=== PATIENT | female | born 1995 | race Caucasian/White ===

== ENCOUNTER 2016-10-12 23:26 | Emergency (ER) | payer MEDICAID | END 2016-10-13 02:11 | disposition left against medical advice (07) | LOC: ER 23:26 | DX: Z53.21 Procedure and treatment not carried out due to patient leaving prior to being seen by health care provider (principal) | CPT/HCPCS: 36415; 80053; 81001; 83690; 84703; 85025; 87088 ==

== ENCOUNTER 2016-10-16 00:11 | Emergency (ER) | payer MEDICAID ==
[2016-10-16] MEDS ORDERED: CYCLOBENZAPRINE 10 MG TAB ONE (02:51)
[2016-10-16] MEDS ORDERED: KETOROLAC 60 MG/2 ML VIAL IM ONE (02:51)
== END 2016-10-16 03:44 | disposition home or self-care (01) ==
LOC: ER 00:11
DX: R07.1 Chest pain on breathing (principal); R09.1 Pleurisy
CPT/HCPCS: 71020; 96372

== ENCOUNTER 2016-10-20 21:49 | Emergency (ER) | payer MEDICAID ==
[2016-10-20] MEDS ORDERED: DIPHENHYDRAMINE 50 MG/ML VIAL ONE (23:38)
[2016-10-20] MEDS ORDERED: METOCLOPRAMIDE 10 MG/2 ML VIAL ONE (23:38)
[2016-10-20] MEDS ORDERED: KETOROLAC 30 MG/ML VIAL ONE (23:39)
[2016-10-20] MEDS ORDERED: SODIUM CHLORIDE 0.9% 1,000 ML ONE (23:39)
== END 2016-10-21 00:42 | disposition left against medical advice (07) ==
LOC: ER 21:49
DX: G43.909 Migraine, unspecified, not intractable, without status migrainosus (principal); G89.18 Other acute postprocedural pain
CPT/HCPCS: 96374; 96375; 96376

== ENCOUNTER 2016-10-21 21:31 | Emergency (ER) | payer MEDICAID | END 2016-10-21 23:20 | disposition left against medical advice (07) | LOC: ER 21:31 | DX: Z53.21 Procedure and treatment not carried out due to patient leaving prior to being seen by health care provider (principal) ==

== ENCOUNTER 2016-11-06 21:56 | Emergency (ER) | payer MEDICAID ==
[2016-11-06] MEDS ORDERED: OPTIRAY 350 100 ML VIAL HMH IV ONE (21:57)
[2016-11-07] MEDS ORDERED: ONDANSETRON 4 MG VIAL ONE (01:57)
[2016-11-07] MEDS ORDERED: MORPHINE 4 MG/ML SYR ONE (01:57)
[2016-11-07] MEDS ORDERED: SODIUM CHLORIDE 0.9% 1,000 ML ONE (01:57)
== END 2016-11-07 04:23 | disposition home or self-care (01) ==
LOC: ER 21:56
DX: R10.30 Lower abdominal pain, unspecified (principal); R19.7 Diarrhea, unspecified; I88.0 Nonspecific mesenteric lymphadenitis
CPT/HCPCS: 36415; 74177; 80053; 82274; 85025; 85610; 85730; 96361; 96374; 96375